=== PATIENT | male | born 1965 ===

== ENCOUNTER 2018-01-08 15:26 | Inpatient (IN) ==
[2018-01-08] MEDS ORDERED: PIPERACILLIN/TAZOBACTAM 3,375 MG in SODIUM CHLORIDE 0.9% 100 ML IV STA (17:30)
[2018-01-08] MEDS ORDERED: GLUCAGON 1 MG VIAL IM PRN (18:17)
[2018-01-08] MEDS ORDERED: traZODone 50 MG TABLET PO PRN (18:17)
[2018-01-08] MEDS ORDERED: PROMETHAZINE 25 MG/1 ML VIAL IM PRN (18:17)
[2018-01-08] MEDS ORDERED: ACETAMINOPHEN 325 MG TABLET PO PRN (18:17)
[2018-01-08] MEDS ORDERED: DEXTROSE 50% 25 GM/50 ML VIAL IV PRN (18:17)
[2018-01-08 19:03] LABS: Basophils % 0.2 % (0.0-0.8); Eosinophils # 0.4 10*3/uL (0.0-0.87); Eosinophils % 3.3 % (0.00-10.9); Hematocrit 42.8 VOL% (42.0-52.0); Hemoglobin 14.6 GM/DL (14.0-18.0); Immature Granulocytes % 0.3 %; Immature Granulocytes Absolute 0.04 #; Lymphocytes # 1.7 10*3/uL (1.4-4.0); Lymphocytes % 13.8 % (21.2-54.2); Mean Corpuscular HGB Conc 34.1 GM/DL (32-36); Mean Corpuscular Hemoglobin 30 PG (27-34); Mean Corpuscular Volume 88.6 FL (87-102); Mean Platelet Volume 10.2 FL (9.6-12.0); Monocytes # 0.7 10*3/uL (0.11-0.8); Monocytes % 5.8 % (1.7-12.7); Neutrophils # 9.3 10*3/uL (1.4-7.4); Neutrophils % 76.6 % (38.7-73.9); Platelet Count 268 T/CUMM (130-400); Red Blood Count 4.83 MC/CUMM (3.8-5.5); Red Cell Distribution Width 13.2 % (9.3-17.3); White Blood Count 12.1 T/CUMM (4-12)
[2018-01-08 19:20] LABS: Albumin 3.8 G/DL (3.4-5.0); Bilirubin,Total 0.7 MG/DL (0.2-1.0); Calcium 8.8 MG/DL (8.5-10.1); Osmolality,Calculated 276.7 MOS/KG (273-304); Potassium 4.5 MMOL/L (3.5-5.1); Thyroid Stimulating Hormone 2.43 uIU/ml (0.358-3.74); Total Protein 8.7 G/DL (6.4-8.3)
[2018-01-08] MEDS: INSULIN REGULAR 100 UNIT/ML SUBCUT SCH (20:00)
[2018-01-08] MEDS: VANCOMYCIN INJ 1,500 MG in SODIUM CHLORIDE 0.9% 500 ML IV SCH (21:16)
[2018-01-09] MEDS: PIPERACILLIN/TAZOBACTAM 3,375 MG in SODIUM CHLORIDE 0.9% 100 ML IV SCH ×3 (01:58→18:25)
[2018-01-09] MEDS: VANCOMYCIN INJ 1,500 MG in SODIUM CHLORIDE 0.9% 500 ML IV SCH ×3 (05:56→21:47)
[2018-01-09 06:27] LABS: Basophils % 0.3 % (0.0-0.8); Eosinophils # 0.5 10*3/uL (0.0-0.87); Eosinophils % 7.3 % (0.00-10.9); Hemoglobin 13.4 GM/DL (14.0-18.0); Immature Granulocytes % 0.3 %; Immature Granulocytes Absolute 0.02 #; Lymphocytes # 1.3 10*3/uL (1.4-4.0); Lymphocytes % 17.8 % (21.2-54.2); Mean Corpuscular HGB Conc 34.4 GM/DL (32-36); Mean Corpuscular Hemoglobin 30 PG (27-34); Mean Corpuscular Volume 87.4 FL (87-102); Mean Platelet Volume 9.8 FL (9.6-12.0); Monocytes # 0.5 10*3/uL (0.11-0.8); Monocytes % 7.7 % (1.7-12.7); Neutrophils # 4.7 10*3/uL (1.4-7.4); Neutrophils % 66.6 % (38.7-73.9); Platelet Count 219 T/CUMM (130-400); Red Blood Count 4.46 MC/CUMM (3.8-5.5); Red Cell Distribution Width 13.1 % (9.3-17.3)
[2018-01-09 06:54] LABS: Calcium 8.2 MG/DL (8.5-10.1); Osmolality,Calculated 282.1 MOS/KG (273-304); Potassium 3.6 MMOL/L (3.5-5.1)
[2018-01-09 06:57] LABS: Risk Ratio 2.77; VLDL CHOLESTEROL 22.4 MG/DL
[2018-01-09] MEDS: LISINOPRIL 10 MG TABLET PO SCH (09:13)
[2018-01-09] MEDS: PANTOPRAZOLE 40 MG TABLET PO SCH (09:13)
[2018-01-09] MEDS: metFORMIN 850 MG TABLET PO SCH ×2 (09:58→16:40)
[2018-01-09] MEDS: INSULIN REGULAR 100 UNIT/ML SUBCUT SCH ×4 (11:30→20:44)
[2018-01-09] MEDS: CHLORHEXIDINE 0.12% ORAL RINSE 60 ML BOTTLE SWISH/SPIT SCH (20:44)
[2018-01-09] MEDS ORDERED: sitaGLIPtin 100 MG TABLET PO SCH (21:00)
[2018-01-09] MEDS ORDERED: ATORVASTATIN 40 MG TABLET PO SCH (21:00)
[2018-01-10] MEDS ORDERED: VANCOMYCIN INJ 1,500 MG in SODIUM CHLORIDE 0.9% 500 ML IV SCH (01:00)
[2018-01-10] MEDS: PIPERACILLIN/TAZOBACTAM 3,375 MG in SODIUM CHLORIDE 0.9% 100 ML IV SCH (05:16)
[2018-01-10] MEDS: INSULIN REGULAR 100 UNIT/ML SUBCUT SCH ×2 (08:31→12:40)
[2018-01-10] MEDS: LISINOPRIL 10 MG TABLET PO SCH (09:19)
[2018-01-10] MEDS: PANTOPRAZOLE 40 MG TABLET PO SCH (09:19)
[2018-01-10] MEDS: metFORMIN 850 MG TABLET PO SCH (09:19)
[2018-01-10] MEDS: CHLORHEXIDINE 0.12% ORAL RINSE 60 ML BOTTLE SWISH/SPIT SCH (09:19)
[2018-01-10 13:58] VITALS: BP 128/82
[2018-01-10] MEDS ORDERED: CLINDAMYCIN 300 MG CAPSULE PO SCH (21:00)
[2018-01-11] MEDS ORDERED: LACTOBACILLUS ACIDOPHILUS/BULGARICUS CAPLET PO SCH (09:00)
== END 2018-01-10 14:40 | disposition home or self-care (01) | DRG 156 ==
LOC: EDUNIT# → N.ED 15:26 → N.EDINP 18:07 → N.5E 19:43
PROVIDERS: ADMIT Hospitalist; ATTEND Hospitalist